=== PATIENT | female | born 1955 | race Caucasian/White ===

== ENCOUNTER → 2016-12-19 | Outpatient (CLI) | payer BC | LOC: MC.RAD 08:20 | DX: Z12.31 Encounter for screening mammogram for malignant neoplasm of breast (principal) ==

== ENCOUNTER → 2018-01-28 | Outpatient (CLI) | payer BC | LOC: MC.RAD 10:39 | DX: Z12.31 Encounter for screening mammogram for malignant neoplasm of breast (principal) ==

== ENCOUNTER 2019-12-06 15:00 | Outpatient (RCR) | payer BC ==
--- NOTE | 2019-12-03 09:59 | NUR ---
Pt arrived for Reclast.Pharmacy called to report medication not here.Rescheduled for .
[~2019-12-06] VITALS: Ht 154.9 cm; Wt 59.3 kg
[2019-12-06 15:03] VITALS: BP 120/76; PULSE 70; TEMP 98.3
[2019-12-06] MEDS ORDERED: MEVACOR 20M20 MG/TAB PO (15:07)
[2019-12-06] MEDS ORDERED: SYNTHROID0.075 MG/T PO (15:07)
[2019-12-06] MEDS ORDERED: HCTZ12.5TAB PO (15:08)
[2019-12-06] MEDS ORDERED: FLONASEALLERGY NS (15:09)
[2019-12-06] MEDS ORDERED: CLARITIN 1010 MG/TAB PO (15:10)
[2019-12-06 16:08] VITALS: BP 123/84; PULSE 63
== END 2019-12-06 16:38 | disposition home or self-care (01) ==
LOC: EUO 15:00
DX: M81.0 Age-related osteoporosis without current pathological fracture (principal)
CPT/HCPCS: J3489

== ENCOUNTER 2020-12-14 13:03 | Outpatient (CLI) | payer MEDICARE, BC ==
[~2020-12-14] VITALS: Ht 154.9 cm; Wt 65.0 kg
[~2020-12-14 13:03] MED LIST: CLARITIN 1010 MG/TAB PO; FLONASEALLERGY NS; HCTZ12.5TAB PO; MEVACOR 20M20 MG/TAB PO; SYNTHROID0.075 MG/T PO
[2020-12-14] MEDS ORDERED: ASPIRIN E.C. 8181 MG PO (13:22)
[2020-12-14 13:23] VITALS: BP 117/74; PULSE 83; TEMP 98
[2020-12-14] MEDS ORDERED: MULTI-VITAMIN W1 TA2 PO (13:23)
== END 2020-12-14 15:53 | disposition home or self-care (01) ==
LOC: EUO 13:03
DX: M81.0 Age-related osteoporosis without current pathological fracture (principal)
CPT/HCPCS: J3489